=== PATIENT | female | born 1965 | race Caucasian/White ===

== ENCOUNTER 2016-10-11 11:15 | Emergency (ER) | payer OTHER ==
[~2016-10-11 11:15] MED LIST: ALPRAZOLAM PO; AMBIEN PO; DICLOFENAC PO; DIFLUNISAL500 MG PO; FLEXERIL10 MG PO; LEVAQUIN PO; LORTAB 5/500 TA1 TA1 PO; MEDROL4 MG/DOSE- PO; NAPROXEN PO; NO MEDICATIONS; NORCO 5/325 TAB1 TAB PO; PHENERGAN PO; PHENERGAN25 MG PO; RELAFEN PO; REMERON PO; ULTRAM PO; VOLTAREN50 MG PO; ZANAFLEX PO; ZYRTEC PO; [UNRECOGNIZED DRUG - REMARK] PO
== END 2016-10-11 11:53 | disposition home or self-care (01) ==
LOC: SED 11:15
DX: S81.851A Open bite, right lower leg, initial encounter (principal); W54.0XXA Bitten by dog, initial encounter; Z23 Encounter for immunization; Z88.1 Allergy status to other antibiotic agents; Z88.8 Allergy status to other drugs, medicaments and biological substances
CPT/HCPCS: 90471; 90715; 99283